=== PATIENT | male | born 1970 | race Caucasian/White ===

== ENCOUNTER 2022-10-01 06:48 | Day surgery (SDC) | payer OTHER ==
[2022-09-28 11:15] VITALS: BMI 37.3
[~2022-10-01 06:48] MED LIST: BUPIVACAINE HCL/PF 0.25% (2.5MG/ML) 10 ML VIAL IJ ONE
[2022-10-01] MEDS ORDERED: BUPIVACAINE HCL/PF 2.5 MG/ML - 30 ML VIAL IJ ONE (09:40)
[2022-10-01] MEDS ORDERED: ONDANSETRON 4 MG/2 ML VIAL ONE (09:54)
[2022-10-01] MEDS ORDERED: PROPOFOL 40 ML ONE (09:54)
[2022-10-01] MEDS ORDERED: ceFAZolin SODIUM 1 GM VIAL ONE (09:54)
[2022-10-01] MEDS ORDERED: KETOROLAC TROMETHAMINE 30 MG/1 ML VIAL ONE (09:54)
[2022-10-01] MEDS ORDERED: LIDOCAINE HCL/PF 2% SDV 5ML VIAL ONE (09:54)
[2022-10-01] MEDS ORDERED: BUPIVACAINE HCL/PF 0.25% (2.5MG/ML) 10 ML VIAL IJ ONE (10:38)
[2022-10-01] MEDS ORDERED: oxyCODONE HCL 5 MG TABLET PO PRN (10:57)
[2022-10-01] MEDS ORDERED: ONDANSETRON 4 MG/2 ML VIAL IVPUSH PRN (10:57)
[2022-10-01] MEDS ORDERED: FENTANYL CITRATE/PF 50 MCG/ML VIAL ONE (11:10)
[2022-10-01 11:56] VITALS: PULSE 78; RESP 16; TEMP 97.7
[2022-10-01 12:30] VITALS: BP 134/78
== END 2022-10-01 13:00 | disposition home or self-care (01) ==
LOC: FASU 06:48
PROVIDERS: ATTEND Orthopaedic Surgery
PROC: 0SBC4ZZ Excision of Right Knee Joint, Percutaneous Endoscopic Approach (ICD-10-PCS; 2022-10-01)
PROC: 0SBC4ZZ Excision of Right Knee Joint, Percutaneous Endoscopic Approach (ICD-10-PCS; principal; 2022-10-01 10:21)
DX: S83.241A Other tear of medial meniscus, current injury, right knee, initial encounter (principal); S83.281A Other tear of lateral meniscus, current injury, right knee, initial encounter; S83.8X1A Sprain of other specified parts of right knee, initial encounter; M65.861 Other synovitis and tenosynovitis, right lower leg; X58.XXXA Exposure to other specified factors, initial encounter; Y93.9 Activity, unspecified; Y92.9 Unspecified place or not applicable
CPT/HCPCS: 94760